=== PATIENT | female | born 1975 | race Caucasian/White ===

== ENCOUNTER → 2016-05-09 | Outpatient (CLI) | payer OTHER ==
[2016-05-09 13:45] LABS: ALBUMIN 3.2 g/dL (3.4-5.0); ALBUMIN/GLOBULIN RATIO 0.8 (1.0-1.7); CALCIUM 9.3 mg/dL (8.5-10.1); CREATININE 0.9 mg/dL (0.6-1.0); GFR 68.3; POTASSIUM 3.9 mmol/L (3.5-5.1); TOTAL BILIRUBIN 0.5 mg/dL (0.2-1.0); TOTAL PROTEIN 7.3 g/dL (6.4-8.2)
[2016-05-09 13:50] LABS: CHOLESTEROL/HDL RATIO 4.1
[2016-05-09 14:00] LABS: FREE T4 1.14 ng/dL (0.76-1.46)
[2016-05-09 14:02] LABS: CKMB MASS < 0.5 ng/mL (0.0-3.6); CREATINE KINASE 36 U/L (26-192)
[2016-05-09 20:10] LABS: RHEUMATOID FACTOR <10.0 IU/mL (0.0-13.9)
== END | disposition home or self-care (01) ==
LOC: EDBD 12:42 → LAB 12:42
PROVIDERS: ATTEND Family Medicine
DX: E78.5 Hyperlipidemia, unspecified (principal); M25.50 Pain in unspecified joint; M79.1 Myalgia
CPT/HCPCS: 36415; 80053; 80061; 82553; 84439; 84443; 85651; 86431

== ENCOUNTER → 2016-06-09 | Outpatient (CLI) | payer OTHER ==
--- NOTE | 2016-06-09 11:11 | RAD ---
DATE: 06/09/2016 EXAM: DIGITAL SCREEN BILAT W/CAD HISTORY: Screening. Note is made of the positive family history for breast malignancy COMPARISON: Outside examination 01/19/2012. This study was interpreted with the benefit of Computerized Aided Detection (CAD). FINDINGS: The breast parenchyma shows scattered fibroglandular densities. Breast parenchyma level B. There are new nodular opacities in the breasts and a suggested area of possible architectural distortion in the right breast. The dominant nodule is in the upper and outer aspect of the left breast. Possible nodules and architectural distortion in the right breast are best demonstrated on the cc view. Additional cone compression imaging of the left breast and targeted ultrasound is advised. Rolled cc views and an ML view of the right breast are suggested. If nodules persist targeted ultrasound of the right breast may be warranted. IMPRESSION: New nodule in the left breast. Possible new nodules and architectural distortion in the right breast. Additional imaging suggested as outlined above BI-RADS CATEGORY: 0 INCOMPLETE: NEED ADDITIONAL IMAGING EVAULATION AND/OR PRIOR MAMMOGRAMS FOR COMPARISON RECOMMENDED FOLLOW-UP: ADD ADDITIONAL IMAGING PQRS compliance statement: Patient information was entered into a reminder system with a target due date soon for the next mammogram. Mammography is a sensitive method for finding small breast cancers, but it does not detect them all and is not a substitute for careful clinical examination. A negative mammogram does not negate a clinically suspicious finding and should not result in delay in biopsying a clinically suspicious abnormality. "Our facility is accredited by the [employer] Mammography [employer]."
== END | disposition home or self-care (01) ==
LOC: MAMMO 07:47
PROVIDERS: ATTEND Family Medicine
DX: Z12.31 Encounter for screening mammogram for malignant neoplasm of breast (principal)
CPT/HCPCS: G0202; 77067

== ENCOUNTER → 2016-07-01 | Outpatient (CLI) | payer OTHER ==
--- NOTE | 2016-07-01 14:44 | RAD ---
DATE: 07/01/2016 EXAM: DIGITAL DIAGNOSTIC BILATERAL, BREAST BILATERAL HISTORY: Suspicious screening study COMPARISON: 06/09/2016 This study was interpreted with the benefit of Computerized Aided Detection (CAD). FINDINGS: Additional views of both breasts were obtained and correlated with the screening images. They confirm the presence of a 19 mm nodule in the left breast at the 2-3 o'clock location. Some of its margins are smooth while others are obscured by adjacent dense fibroglandular tissue. There are 2 smaller, smooth nodules in the right breast at approximately the 12:00 location. These both measure approximately 9 mm. The area of possible architectural distortion described laterally in the right breast on the CC screening view is not reproduced on today's rolled cc views, spot compression or the straight mediolateral view. There are heterogeneous fibroglandular densities in this region. Bilateral breast ultrasound, 07/01/2016: A targeted ultrasound exam of the left breast was performed at the 2-3 o'clock location. There is a cluster of 2 cysts at this level measuring 2 cm in greatest dimension. This corresponds in size and location to the mammographic abnormality. Two additional smaller simple cysts were also noted just superior to this first cyst cluster, at the 2:00 location. A targeted ultrasound exam of the right breast was performed at the 12:00 location. There is a 7 mm simple cyst located approximately 4 cm from the nipple. There is a similar 7 mm cyst located 8 cm from the nipple at the 12:00 location. These appear to correspond to the mammographic abnormalities at 12:00. We also examined the entire upper outer quadrant of the right breast. No additional cysts or solid breast nodule is seen. IMPRESSION: 1. Bilateral breast cysts at 12:00 on the right and 2-3 o'clock on the left as described above. 2. The small opacity seen laterally on the right cc view of the screening study could not be reproduced mammographically and there was no sonographic correlate in this region. This is probably a summation shadow. Follow-up right mammography in 6 months and bilateral mammography at 12 years is suggested for confirmation. BI-RADS CATEGORY: 3 PROBABLY BENIGN FINDING(S)-SHORT INTERVAL FOLLOW-UP SUGGESTED RECOMMENDED FOLLOW-UP: 6M 6 MONTH FOLLOW-UP PQRS compliance statement: Patient information was entered into a reminder system with a target due date for the next mammogram. Mammography is a sensitive method for finding small breast cancers, but it does not detect them all and is not a substitute for careful clinical examination. A negative mammogram does not negate a clinically suspicious finding and should not result in delay in biopsying a clinically suspicious abnormality. "Our facility is accredited by the [employer] Mammography [employer]."
== END | disposition home or self-care (01) ==
LOC: MAMMO 12:44
PROVIDERS: ATTEND Family Medicine
DX: R92.8 Other abnormal and inconclusive findings on diagnostic imaging of breast (principal); N60.02 Solitary cyst of left breast; N60.01 Solitary cyst of right breast
CPT/HCPCS: 76641; G0204; 77066

== ENCOUNTER → 2017-02-23 | Day surgery (SDC) | payer OTHER ==
[~2017-02-23] MED LIST: 0.9 % SODIUM CHLORIDE 10 ML DISP.SYRIN. IV; 0.9 % SODIUM CHLORIDE 50 ML VIAL. IJ; BUPIVAC MPF-EPI 0.75%-1:200000 30 ML VIAL.; CALCIUM CARBONATE 500 MG TAB.CHEW PO; DESFLURANE 61 TO 120 MINUTES IH; DEXAMETHASONE SOD PHOS 20 MG/5 ML VIAL.; ESTROGENS, CONJ VAGINAL CREAM 30GM TUBE.; FAMOTIDINE 20 MG/2 ML VIAL; HYDROcodone/APAP 5/325MG 1 TAB TABLET PO; HYDROmorphone 2 MG/ML VIAL IV; LIDOCAINE 1% PF 2 ML VIAL. ID; LIDOCAINE 1% PF 5 ML VIAL.; MAG HYDROX/ALUMINUM HYD/SIMETH 30 ML ORAL.SUSP PO; MORPHINE SULFATE 2 MG/ML DISP.SYRIN. IV; NALOXONE 0.4 MG/ML VIAL. IV; ONDANSETRON PF 4 MG/2 ML VIAL.; ONDANSETRON PF 4 MG/2 ML VIAL. IV; PROCHLORPERAZINE 10 MG/2 ML VIAL. IV; PROPOFOL 20 ML IV; ROCURONIUM 50 MG/5 ML VIAL.; SIMETHICONE 80 MG TAB.CHEW PO; SUCCINYLCHOLINE 200 MG/10 ML VIAL.; ceFAZolin 2GM PREMIX 2 GM/50 ML BAG IV; diphenhydrAMINE 50 MG/ML VIAL IV; diphenhydrAMINE HCL 25 MG CAPSULE PO; fentaNYL PF VIAL 100 MCG/2 ML VIAL; fentaNYL PF VIAL 100 MCG/2 ML VIAL IV
[2017-02-23] MEDS: IV RINGERS,LACTATED 1000ML 1,000 ML IV (06:30)
[2017-02-23] MEDS: BUPIVACAINE MPF 0.5% 30 ML VIAL. (09:38)
[2017-02-23] MEDS: oxyCODONE/APAP 5/325 1 TAB TABLET PO (10:06)
== END | disposition home or self-care (01) ==
LOC: SURG 06:09
DX: N39.3 Stress incontinence (female) (male) (principal); N81.10 Cystocele, unspecified; E78.00 Pure hypercholesterolemia, unspecified; E66.9 Obesity, unspecified; K21.9 Gastro-esophageal reflux disease without esophagitis; F17.200 Nicotine dependence, unspecified, uncomplicated; Z87.39 Personal history of other diseases of the musculoskeletal system and connective tissue; Z90.49 Acquired absence of other specified parts of digestive tract; Z90.710 Acquired absence of both cervix and uterus
CPT/HCPCS: 57288; C1771; J0330; J0690; J1100; J2405; J2704; J3010; J3490; S0028

== ENCOUNTER → 2017-06-29 | Outpatient (CLI) | payer OTHER ==
[2017-06-29 07:42] LABS: ADD MAN DIFF? NO
[2017-06-29 08:07] LABS: BASO # 0.1 x10^3/uL (0.0-0.2); BASO % 1 % (0-3); EOS # 0.3 x10^3/uL (0.0-0.7); EOS % 3 % (0-3); HEMOGLOBIN 12.8 g/dL (12.0-15.5); LYMPH # 4.3 x10^3/uL (1.0-4.8); LYMPH % 34 % (24-48); MEAN CORPUSCULAR HEMOGLOBIN 31 pg (25-35); MEAN CORPUSCULAR HGB CONC 35 g/dL (31-37); MEAN CORPUSCULAR VOLUME 89 fL (79-100); MONO # 0.7 x10^3/uL (0.0-1.1); MONO % 6 % (0-9); NEUT # 7.1 x10^3uL (1.8-7.7); NEUT % 57 % (31-73); PLATELET COUNT 327 x10^3/uL (140-400); RED BLOOD COUNT 4.16 x10^6/uL (3.50-5.40); RED CELL DISTRIBUTION WIDTH 13.3 % (11.5-14.5); WHITE BLOOD COUNT 12.4 x10^3/uL (4.0-11.0)
[2017-06-29 08:17] LABS: ALBUMIN 3.5 g/dL (3.4-5.0); ALBUMIN/GLOBULIN RATIO 0.9 (1.0-1.7); ALK PHOS 87 U/L (46-116); ALT (SGPT) 18 U/L (14-59); ANION GAP 8 (6-14); AST (SGOT) 12 U/L (15-37); BLOOD UREA NITROGEN 15 mg/dL (7-20); BUN/CREATININE RATIO 15 (6-20); CALCIUM 8.9 mg/dL (8.5-10.1); CARBON DIOXIDE 28 mmol/L (21-32); CHLORIDE 103 mmol/L (98-107); CHOLESTEROL 165 mg/dL (0-200); GFR 60.2; GLUCOSE 92 mg/dL (70-99); HDLC 45 mg/dL (40-60); LDLC 78 mg/dL (0-100); NON-HDL CHOLESTEROL 120 mg/dL (0-129); POTASSIUM 4.2 mmol/L (3.5-5.1); SODIUM 139 mmol/L (136-145); TOTAL BILIRUBIN 0.5 mg/dL (0.2-1.0); TOTAL PROTEIN 7.3 g/dL (6.4-8.2); TRIGLYCERIDES 211 mg/dL (0-150); VLDLC 42 mg/dL (0-40)
[2017-06-29 08:25] LABS: CHOLESTEROL/HDL RATIO 3.7
[2017-06-29 08:27] LABS: FREE T4 0.96 ng/dL (0.76-1.46)
[2017-06-29 08:27] LABS: THYROID STIM HORMONE (TSH) 2.212 uIU/mL (0.358-3.74)
== END | disposition home or self-care (01) ==
LOC: LAB 07:32
DX: E78.5 Hyperlipidemia, unspecified (principal); R00.2 Palpitations
CPT/HCPCS: 36415; 80053; 80061; 84439; 84443; 85025

== ENCOUNTER 2017-07-11 19:10 | Emergency (ER) | payer OTHER ==
[2017-07-11 20:16] LABS: BILIRUBIN,URINE NEGATIVE (NEG); CLARITY,URINE CLEAR; COLOR,URINE YELLOW; GLUCOSE,URINE NEGATIVE (NEG); NITRITE,URINE NEGATIVE (NEG); PROTEIN,URINE NEGATIVE (NEG-TRACE); UROBILINOGEN,URINE 0.2 mg/dL (0.2 mg/dL)
[2017-07-11 20:20] LABS: BACTERIA,URINE 0 /HPF (0-FEW); RBC,URINE 0 /HPF (0-2); SQUAMOUS EPITHELIAL CELL,UR FEW /LPF; WBC,URINE 0 /HPF (0-4)
[2017-07-11 20:23] LABS: ADD MAN DIFF? NO
[2017-07-11 20:25] LABS: BASO # 0.1 x10^3/uL (0.0-0.2); BASO % 1 % (0-3); EOS # 0.1 x10^3/uL (0.0-0.7); EOS % 2 % (0-3); HEMATOCRIT 38.5 % (36.0-47.0); HEMOGLOBIN 13.4 g/dL (12.0-15.5); LYMPH # 2.3 x10^3/uL (1.0-4.8); LYMPH % 34 % (24-48); MEAN CORPUSCULAR HEMOGLOBIN 31 pg (25-35); MEAN CORPUSCULAR HGB CONC 35 g/dL (31-37); MEAN CORPUSCULAR VOLUME 89 fL (79-100); MONO # 0.4 x10^3/uL (0.0-1.1); MONO % 6 % (0-9); NEUT # 3.8 x10^3uL (1.8-7.7); NEUT % 56 % (31-73); PLATELET COUNT 348 x10^3/uL (140-400); RED BLOOD COUNT 4.35 x10^6/uL (3.50-5.40); WHITE BLOOD COUNT 6.7 x10^3/uL (4.0-11.0)
[2017-07-11 20:34] LABS: ANION GAP 14 (6-14); BLOOD UREA NITROGEN 13 mg/dL (7-20); BUN/CREATININE RATIO 14 (6-20); CALCIUM 8.6 mg/dL (8.5-10.1); CARBON DIOXIDE 22 mmol/L (21-32); CHLORIDE 107 mmol/L (98-107); CREATININE 0.9 mg/dL (0.6-1.0); GLUCOSE 95 mg/dL (70-99); POTASSIUM 4.4 mmol/L (3.5-5.1); SODIUM 143 mmol/L (136-145)
[2017-07-11 20:40] LABS: ALBUMIN 3.5 g/dL (3.4-5.0); ALBUMIN/GLOBULIN RATIO 1.1 (1.0-1.7); ALK PHOS 90 U/L (46-116); ALT (SGPT) 21 U/L (14-59); AST (SGOT) 14 U/L (15-37); TOTAL BILIRUBIN 0.5 mg/dL (0.2-1.0); TOTAL PROTEIN 6.8 g/dL (6.4-8.2)
[2017-07-11 20:44] LABS: TROPONINI < 0.017 ng/mL (0.000-0.055)
[2017-07-11 21:27] LABS: SEDIMENTATION RATE 6 (0-25)
[2017-07-11] MEDS: IV NORMAL SALINE 1000ML BAG 1,000 ML IV (21:41)
[2017-07-11] MEDS: KETOROLAC 30 MG/ML INJ. IV (21:41)
[2017-07-11] MEDS: METOCLOPRAMIDE HCL 10 MG/2 ML VIAL. IV (21:42)
[2017-07-11] MEDS: diphenhydrAMINE 50 MG/ML VIAL IVP (21:42)
== END 2017-07-11 23:50 | disposition home or self-care (01) ==
LOC: ER 23:50
DX: G43.909 Migraine, unspecified, not intractable, without status migrainosus (principal); E78.00 Pure hypercholesterolemia, unspecified; Z90.49 Acquired absence of other specified parts of digestive tract; Z90.710 Acquired absence of both cervix and uterus
CPT/HCPCS: 36415; 70450; 80053; 81001; 84484; 85025; 85651; 93005; 96374; 96375; 99285-25; J1200; J1885; J2765; J7030

== ENCOUNTER → 2017-08-03 | Outpatient (CLI) | payer OTHER | END | disposition home or self-care (01) | LOC: ECHO 08:35 | DX: I36.1 Nonrheumatic tricuspid (valve) insufficiency (principal); J98.4 Other disorders of lung | CPT/HCPCS: 93306 ==

== ENCOUNTER → 2018-06-27 | Outpatient (CLI) | payer OTHER ==
[2017-07-11 22:50] VITALS: BP 117/80
[~2018-06-27] MED LIST changes: -0.9 % SODIUM CHLORIDE 10 ML DISP.SYRIN. IV; -0.9 % SODIUM CHLORIDE 50 ML VIAL. IJ; +ALBU2.5V8 IH; -BUPIVAC MPF-EPI 0.75%-1:200000 30 ML VIAL.; -CALCIUM CARBONATE 500 MG TAB.CHEW PO; +CYCL10TA2 PO; -DESFLURANE 61 TO 120 MINUTES IH; -DEXAMETHASONE SOD PHOS 20 MG/5 ML VIAL.; -ESTROGENS, CONJ VAGINAL CREAM 30GM TUBE.; -FAMOTIDINE 20 MG/2 ML VIAL; -HYDROcodone/APAP 5/325MG 1 TAB TABLET PO; -HYDROmorphone 2 MG/ML VIAL IV; +IPRA3AMP29 NEB; -LIDOCAINE 1% PF 2 ML VIAL. ID; -LIDOCAINE 1% PF 5 ML VIAL.; -MAG HYDROX/ALUMINUM HYD/SIMETH 30 ML ORAL.SUSP PO; +MELO15TA6 PO; -MORPHINE SULFATE 2 MG/ML DISP.SYRIN. IV; -NALOXONE 0.4 MG/ML VIAL. IV; -ONDANSETRON PF 4 MG/2 ML VIAL.; -ONDANSETRON PF 4 MG/2 ML VIAL. IV; +PRED20TA PO; -PROCHLORPERAZINE 10 MG/2 ML VIAL. IV; -PROPOFOL 20 ML IV; -ROCURONIUM 50 MG/5 ML VIAL.; -SIMETHICONE 80 MG TAB.CHEW PO; +SIMV20TA3 PO; -SUCCINYLCHOLINE 200 MG/10 ML VIAL.; +TRAM50TA PO; +TRAZ-118 PO; -ceFAZolin 2GM PREMIX 2 GM/50 ML BAG IV; -diphenhydrAMINE 50 MG/ML VIAL IV; -diphenhydrAMINE HCL 25 MG CAPSULE PO; -fentaNYL PF VIAL 100 MCG/2 ML VIAL; -fentaNYL PF VIAL 100 MCG/2 ML VIAL IV
--- NOTE | 2018-06-27 11:45 | RAD ---
DATE: 06/27/2018 EXAM: MAMMO MAGNUS BERNICE MOYA, BREAST LEFT HISTORY: Left breast pain and lump COMPARISON: 06/09/2016, 07/01/2016 This study was interpreted with the benefit of Computerized Aided Detection (CAD). Breast Density: SCATTERED The breast parenchyma shows scattered fibroglandular densities. Breast parenchyma level B. FINDINGS: 2-D and 3-D tomosynthesis imaging was performed in CC and MLO projections. A BB was placed on the skin surface overlying the area of palpable concern laterally in the left breast There are multiple smooth nodules in both breasts. Some of these are better defined on the current 3-D tomosynthesis images due to technical factors. The largest of these nodules lies in the left upper outer quadrant and corresponds to the area of palpable concern. This nodule has increased in size since the previous study at which time it measured 2 cm. On the previous ultrasound exam of 07/01/2016 this was thought to correspond to a cyst cluster. Several other bilateral breast cysts were noted on the prior ultrasound exam. Two small right breast cysts seen on the previous study appear unchanged mammographically. There is an unchanged nodule projected over the axillary tail region of the left breast which probably represents a benign intramammary lymph node. No spiculated mass or architectural distortion is seen. No suspicious microcalcifications are evident. Left breast ultrasound, 06/27/2018: A targeted ultrasound exam of the area of palpable concern in the left upper outer quadrant was performed. There is a 2.9 cm cyst at the 1:30 location approximately 9 cm from the nipple which appears to correspond to the area of palpable concern. There is a nearby cluster of smaller cysts, the largest of which measures 1.1 cm. One of these demonstrates a somewhat thickened wall and low level internal echoes compatible with a complicated cyst. No solid breast mass is seen. IMPRESSION: 1. Stable right breast nodules compatible with the patient's known cysts. 2. The enlarging palpable nodule in the left upper outer quadrant corresponds to a simple cyst. 3. There is an additional nearby cluster of simple and probable complicated cysts in the left breast. Sonographic follow-up on the left in 6 months and bilateral mammography in one year is suggested. BI-RADS CATEGORY: 3 PROBABLY BENIGN FINDING(S)-SHORT INTERVAL FOLLOW-UP SUGGESTED RECOMMENDED FOLLOW-UP: 6M 6 MONTH FOLLOW-UP PQRS compliance statement: Patient information was entered into a reminder system with a target due date for the next mammogram. Mammography is a sensitive method for finding small breast cancers, but it does not detect them all and is not a substitute for careful clinical examination. A negative mammogram does not negate a clinically suspicious finding and should not result in delay in biopsying a clinically suspicious abnormality. "Our facility is accredited by the [employer] Mammography Program."
== END | disposition home or self-care (01) ==
LOC: MAMMO 10:00
DX: N63.21 Unspecified lump in the left breast, upper outer quadrant (principal); N63.10 Unspecified lump in the right breast, unspecified quadrant
CPT/HCPCS: 76641; 77066; G0279; 77062

== ENCOUNTER 2019-02-06 06:48 | Emergency (ER) | payer OTHER ==
[~2019-02-06] VITALS: Ht 162.6 cm; Wt 102.1 kg
[~2019-02-06 06:48] MED LIST changes: -ALBU2.5V8 IH; +PROVENTIL HFA6.7 GM IH; +SIMV20TA18 PO; -SIMV20TA3 PO
[2019-02-06 07:10] VITALS: BP 154/86
[2019-02-06] MEDS: KETOROLAC 30 MG/ML VIAL. IM ONE (08:05)
--- NOTE | 2019-02-06 08:20 | RAD ---
FOOT RIGHT 3V History: Pain. No specific location of pain. No history of trauma.. No evidence of acute fracture. No aggressive bone destruction. Calcaneal enthesophytes. No significant soft tissue swelling. Joints and alignment appear grossly intact. IMPRESSION: No acute radiographic findings. Electronically signed by: Matti Acevedo MD (02/06/2019 8:17 AM) [facility]
--- NOTE | 2019-02-06 08:27 | PHYS DOC ---
Past Medical History Past Medical History: Fibromyalgia, High Cholesterol Past Surgical History: Cholecystectomy, Hysterectomy, Other Additional Past Surgical Histo: Bladder sling, LEFT FOOT/ANKLE Alcohol Use: None Drug Use: None Adult General Chief Complaint Chief Complaint: FOOT INJURY PAIN HPI HPI Patient is a 43 year old with past medical history of fibromyalgia who presents with right foot pain that began this morning after getting out of the shower and taking a couple steps. She felt a "pop and crunch" in her right mid foot that she describes as sharp, non-radiating, and rated as a 5 out of 10 in severity. She denies any trauma or injury to the area. She is unable to walk at this time and has significantly decreased strength and range of motion in the foot. She has not taken any medications to this point for the foot. She has no other complaints at this time. Review of Systems Review of Systems Constitutional: Denies fever or chills Eyes: Denies redness or eye pain HENT: Denies nasal congestion or sore throat Respiratory: Denies cough or shortness of breath Cardiovascular: Denies chest pain or palpitations Musculoskeletal: Right foot pain Integument: Denies rash or skin lesions Neurologic: Denies headache, focal weakness or sensory changes Complete systems were reviewed and found to be within normal limits, except as documented in this note. Current Medications Current Medications Current Medications Medications (Trade) Dose Ordered Sig/Rakan Start Time Stop Time Status Last Admin Dose Admin Ketorolac Tromethamine (Toradol 30mg Vial) 30 mg 1X ONCE 02/06/19 07:45 02/06/19 07:46 DC 02/06/19 08:05 30 MG Allergies Allergies Allergies Coded Allergies Type Severity Reaction Last Updated Verified No Known Drug Allergies 02/23/17 No Physical Exam Physical Exam Constitutional: Well developed, well nourished, no acute distress, non-toxic appearance Eyes: conjunctiva normal, no discharge Cardiovascular: Heart rate normal, regular rhythm Lungs & Thorax: Bilateral breath sounds clear to auscultation, no wheezing Skin: Warm, dry, no erythema, no rash Extremities: TTP inferior to medial malleolus with mild swelling. Decreased ROM and strength in right foot. Normal sensation. Neurologic: Alert and oriented X 3, normal motor function, normal sensory function, no focal deficits noted Psychologic: Affect normal, judgement normal, mood normal Current Patient Data Vital Signs Vital Signs Date Time Temp Pulse Resp B/P (MAP) Pulse Ox O2 Delivery O2 Flow Rate FiO2 02/06/19 07:10 98.6 89 20 154/86 (108) 97 Room Air 98.6 EKG EKG [] Radiology/Procedures Radiology/Procedures PROCEDURE: FOOT RIGHT 3V FOOT RIGHT 3V History: Pain. No specific location of pain. No history of trauma.. No evidence of acute fracture. No aggressive bone destruction. Calcaneal enthesophytes. No significant soft tissue swelling. Joints and alignment appear grossly intact. IMPRESSION: No acute radiographic findings. Electronically signed by: Matti Acevedo MD (02/06/2019 8:17 AM) [facility] Course & Med Decision Making Course & Med Decision Making Patient is a 43-year-old female who presents with right foot pain after hearing a pop while stepping out of a shower. She denies twisting her ankle or falling. On exam she has tenderness to palpation just below the medial malleolus with mild swelling. X-ray of the foot was obtained which showed no acute fractures. She was given Toradol eyes and crutches and preop shoe to help with mobility and pain at this time. She is counseled to follow-up with orthopedic for further diagnosis. Patient stable for discharge with outpatient follow-up with PCP. Discussed findings and plan with patient and family, who acknowledge understanding and agreement. Dragon Disclaimer Dragon Disclaimer This electronic medical record was generated, in whole or in part, using a voice recognition dictation system. Splinting Splinting : Location: right foot Pre-Made Type: post-op shoe Pre-Proc Neuro Vasc Exam: normal Post-Proc Neuro Vasc Exam: normal, unchanged from pre-exam Departure Departure Impression: Primary Impression: Foot pain, right Disposition: 01 HOME, SELF-CARE Condition: STABLE Referrals: KIMBERLY CEDENO MD (PCP) ANDREZ NEWELL MD Patient Instructions: Crutch Use, [id number], Foot Sprain Additional Instructions: Please take over the counter Ibuprofen and Tylenol for pain or discomfort. MATTI JOHNSON DO Feb 06, 2019 08:27
== END 2019-02-06 08:50 | disposition home or self-care (01) ==
LOC: ER 06:48
DX: M79.671 Pain in right foot (principal); M79.7 Fibromyalgia; E78.00 Pure hypercholesterolemia, unspecified; Z90.49 Acquired absence of other specified parts of digestive tract; Z90.89 Acquired absence of other organs; Z98.890 Other specified postprocedural states
CPT/HCPCS: 73630; 96372; 99284; J1885

== ENCOUNTER → 2019-02-20 | Outpatient (CLI) | payer OTHER ==
[2019-02-06 07:10] VITALS: BP 154/86
--- NOTE | 2019-02-21 10:52 | RAD ---
MR of the right ankle HISTORY: Internal derangement. TECHNIQUE: Routine multiplanar sequences are obtained. FINDINGS: Peroneal tendons are intact. Anterior talofibular ligament, calcaneofibular ligament and posterior talofibular ligament are intact. Inferior tibiofibular syndesmotic ligaments are intact. Posterior tibial and flexor tendons are intact. No acute deltoid ligament injury. Anterior tibial and extensor tendons are intact. Achilles tendon intact. Mild thickening of the plantar aponeurosis at the calcaneal attachment compatible plantar fasciitis. Small subjacent enthesophyte. The subtalar joints are patent. Tarsal sinus is intact. Talar dome is intact. No significant joint effusion. Suboptimal fat suppression on the T2-weighted images may limit evaluation of bones. No evidence of aggressive bone destruction or acute fracture is suggested. IMPRESSION: 1. Mild plantar fasciitis. 2. No other definite abnormalities are seen. Electronically signed by: Matti Acevedo MD (02/21/2019 10:49 AM) [id number]
== END | disposition home or self-care (01) ==
LOC: MRI 14:51
PROVIDERS: ATTEND Physician Assistant
DX: M72.2 Plantar fascial fibromatosis (principal); M24.871 Other specific joint derangements of right ankle, not elsewhere classified
CPT/HCPCS: 73721

== ENCOUNTER → 2019-08-05 | Outpatient (CLI) | payer OTHER ==
[2019-08-05 14:05] LABS: BASO # 0.1 x10^3/uL (0.0-0.2); BASO % 1 % (0-3); EOS # 0.3 x10^3/uL (0.0-0.7); EOS % 3 % (0-3); HEMOGLOBIN 13.8 g/dL (12.0-15.5); LYMPH # 3.4 x10^3/uL (1.0-4.8); LYMPH % 32 % (24-48); MEAN CORPUSCULAR HEMOGLOBIN 31 pg (25-35); MEAN CORPUSCULAR HGB CONC 35 g/dL (31-37); MEAN CORPUSCULAR VOLUME 90 fL (79-100); MONO # 0.6 x10^3/uL (0.0-1.1); MONO % 5 % (0-9); NEUT # 6.3 x10^3/uL (1.8-7.7); NEUT % 59 % (31-73); PLATELET COUNT 370 x10^3/uL (140-400); RED BLOOD COUNT 4.45 x10^6/uL (3.50-5.40); RED CELL DISTRIBUTION WIDTH 13.6 % (11.5-14.5); WHITE BLOOD COUNT 10.6 x10^3/uL (4.0-11.0)
[2019-08-05 15:15] LABS: ALBUMIN 3.5 g/dL (3.4-5.0); ALBUMIN/GLOBULIN RATIO 0.9 (1.0-1.7); CALCIUM 8.4 mg/dL (8.5-10.1); GFR 59.7; POTASSIUM 4.1 mmol/L (3.5-5.1); TOTAL BILIRUBIN 0.9 mg/dL (0.2-1.0); TOTAL PROTEIN 7.3 g/dL (6.4-8.2)
[2019-08-05 15:53] LABS: CHOLESTEROL/HDL RATIO 5.1
== END | disposition home or self-care (01) ==
LOC: LAB 13:41
PROVIDERS: ATTEND Family Medicine
DX: E78.5 Hyperlipidemia, unspecified (principal); K21.9 Gastro-esophageal reflux disease without esophagitis
CPT/HCPCS: 36415; 80053; 80061; 85025

== ENCOUNTER → 2019-08-05 | Outpatient (CLI) | payer OTHER ==
--- NOTE | 2019-08-05 13:37 | KCIC ---
EXAM: DUAL ENERGY X-RAY ABSORPTIOMETRY (DEXA). HISTORY: Postmenopausal screening. FINDINGS: The lowest measured T-score is -0.7 in the left proximal femur, based on a bone mineral density of 0.856 g/cm^2. Refer to the worksheets for full detail. No comparison examinations are available. IMPRESSION: Low bone mass. Bone mineral density yields a T-score between -1.0 and -2.5. Fracture risk is increased. FRAX was not calculated. METHODOLOGY: Dual energy x-ray absorptiometry was performed to measure bone mineral density. The following analysis is based on the 2019 Official Positions of the International Society for Clinical Densitometry: Measurements of the hips and the average of L1-L4 are preferred. When the spine and/or hip cannot be feasibly measured or interpreted, or in the setting of hyperparathyroidism, distal radial bone mineral density may be measured. The lumbar spine T-score is based on the average bone mineral density of L1-L4. In the setting of artifact or anatomic abnormality, some lumbar levels may be excluded, and the remaining levels used for calculation. A single lumbar level is not used for diagnosis, and if only a single level is available for assessment, another anatomic site will be used to assign a diagnosis. The hip T-score is based on the bone mineral density measurement of the femoral neck or total proximal femur of either side, whichever is lowest. Bilateral mean values are not used for diagnosis. The forearm T-score is derived from 33% of the distal radius of the nondominant forearm. For postmenopausal and perimenopausal women, and men age 50 or older, of all ethnic groups, T-scores are calculated through comparison of the current measurement with the NHANES III database standard for females aged 20-29 years. The lowest T-score of the evaluated anatomic sites is used to assign a diagnosis based on the World Health Organization densitometric classification. In premenopausal females and males younger than age 50, a Z-score is calculated based on population specific reference data for patient sex and self-reported ethnicity. Electronically signed by: Mark Diaz MD (08/05/2019 1:34 PM) [facility]
== END ==
LOC: KCIC DEXA 13:00
PROVIDERS: ATTEND Family Medicine
DX: N95.1 Menopausal and female climacteric states (principal); N95.8 Other specified menopausal and perimenopausal disorders
CPT/HCPCS: 77080

== ENCOUNTER → 2019-08-15 | Outpatient (CLI) | payer OTHER | END | disposition home or self-care (01) | LOC: LAB 13:28 | PROVIDERS: ATTEND Internal Medicine Pulmonary Disease | DX: Z20.828 Contact with and (suspected) exposure to other viral communicable diseases (principal); J02.9 Acute pharyngitis, unspecified; R53.81 Other malaise; R51 Headache | CPT/HCPCS: U0003-CS ==

== ENCOUNTER → 2019-08-22 | Outpatient (CLI) | payer OTHER ==
--- NOTE | 2019-08-22 14:53 | RAD ---
CLINICAL INDICATION: BRITANY CHRISTENSEN, who is 44 years of age, presents for short-term imaging followup of a probably benign finding in the left breast. COMPARISON: Prior mammographic imaging dating back to 06/27/2018 TECHNIQUE: Full field craniocaudal, mediolateral and mediolateral oblique views of both breasts were obtained using digital technique. Computer-aided detection tools were utilized. BREAST COMPOSITION: There are scattered fibroglandular densities. MAMMOGRAM FINDINGS: There are no suspicious masses, microcalcifications, or architectural distortion to suggest malignancy in the either breast. The visualized axilla appears unremarkable. Given the prior sonographic abnormality, ultrasound was then performed. ULTRASOUND FINDINGS: Targeted ultrasound of the previously described probably benign finding was again performed. 1:30 position, 7 cm from the nipple: An anechoic avascular mass of circumscribed margins and round/oval shape is present. It demonstrates posterior acoustic enhancement and a parallel orientation. It measures 7 mm At the 1:30 position, approximately 5 cm from the nipple a hypoechoic mass with enhanced through transmission measures 8 mm. At the 1:30 position, approximately 7-8 cm from the nipple a 5 mm anechoic cystic structure is seen with slightly irregular arellano likely from partial collapse. IMPRESSION: 1. Left breast probably benign mass for which follow up is recommended. RECOMMENDATION: In the absence of new clinical symptoms or change in physical exam, short term follow up diagnostic examination is recommended in 6 months to assess for interval stability. BIRADS 3: PROBABLY BENIGN Electronically signed by: Raz Mancilla MD (08/22/2019 2:50 PM) [id number]
== END | disposition home or self-care (01) ==
LOC: MAMMO 13:44
PROVIDERS: ATTEND Family Medicine
DX: R92.2 Inconclusive mammogram (principal)
CPT/HCPCS: 76641; 77066

== ENCOUNTER → 2019-12-22 | Outpatient (CLI) | payer OTHER ==
[2019-12-09 18:57] VITALS: BP 138/77
== END ==
LOC: LAB 19:20
PROVIDERS: ATTEND Internal Medicine Pulmonary Disease
DX: R05 Cough (principal); R53.81 Other malaise; R68.83 Chills (without fever); R19.7 Diarrhea, unspecified; R09.81 Nasal congestion; Z20.828 Contact with and (suspected) exposure to other viral communicable diseases
CPT/HCPCS: C9803; U0003

== ENCOUNTER 2020-03-31 12:08 | Emergency (ER) | payer OTHER ==
[~2020-03-31] VITALS: Ht 162.6 cm; Wt 100.0 kg
[2020-03-31] MEDS ORDERED: IV NORMAL SALINE 1000ML BAG 1,000 ML IV SCH (14:00)
[2020-03-31 14:09] LABS: BILIRUBIN,URINE NEGATIVE (NEG); CLARITY,URINE CLEAR; COLOR,URINE YELLOW; NITRITE,URINE NEGATIVE (NEG); PH,URINE 7.5 (<5.0-8.0); PROTEIN,URINE NEGATIVE (NEG-TRACE)
[2020-03-31] MEDS ORDERED: ONDANSETRON PF 4 MG/2 ML VIAL. IVP ONE (14:15)
[2020-03-31] MEDS ORDERED: KETOROLAC 30 MG/ML VIAL. IVP ONE (14:15)
[2020-03-31] MEDS ORDERED: MORPHINE SULFATE 4 MG/ML VIAL. IV ONE (14:15)
[2020-03-31 14:22] LABS: BASO # 0.1 x10^3/uL (0.0-0.2); BASO % 1 % (0-3); EOS # 0.1 x10^3/uL (0.0-0.7); EOS % 1 % (0-3); HEMATOCRIT 38.8 % (36.0-47.0); HEMOGLOBIN 13.3 g/dL (12.0-15.5); LYMPH # 1.6 x10^3/uL (1.0-4.8); LYMPH % 15 % (24-48); MEAN CORPUSCULAR HEMOGLOBIN 31 pg (25-35); MEAN CORPUSCULAR HGB CONC 34 g/dL (31-37); MEAN CORPUSCULAR VOLUME 90 fL (79-100); MONO # 0.7 x10^3/uL (0.0-1.1); MONO % 6 % (0-9); NEUT # 8.5 x10^3/uL (1.8-7.7); NEUT % 78 % (31-73); PLATELET COUNT 316 x10^3/uL (140-400); RED BLOOD COUNT 4.33 x10^6/uL (3.50-5.40); RED CELL DISTRIBUTION WIDTH 13.4 % (11.5-14.5); WHITE BLOOD COUNT 10.9 x10^3/uL (4.0-11.0)
[2020-03-31 14:27] LABS: BACTERIA,URINE MANY /HPF (0-FEW); RBC,URINE OCC /HPF (0-2); WBC,URINE >40 /HPF (0-4)
--- NOTE | 2020-03-31 14:28 | RAD ---
XR ABDOMEN 1V History: Reason: ABD PAIN.RT FLANK PAIN THAT RADIATES DOWN INTO GROIN. / Spl. Instructions: / Histor y: Comparison: None. Technique: Supine radiographs of the abdomen and pelvis. Findings: Surgical clips in the right upper quadrant. Nonobstructive bowel gas pattern. No abnormal calcificati ons or abnormal mass impression. Evidence for free air. Osseous structures and soft tissues otherwise unremarkable Impression: 1. No acute abdominal findings. No evidence of urolithiasis. Electronically signed by: Kiko Nixon MD (03/31/2020 2:25 PM) [facility]
[2020-03-31 14:51] LABS: ALBUMIN 3.4 g/dL (3.4-5.0); ALBUMIN/GLOBULIN RATIO 0.8 (1.0-1.7); CALCIUM 8.5 mg/dL (8.5-10.1); GFR 59.7; POTASSIUM 3.3 mmol/L (3.5-5.1); TOTAL BILIRUBIN 1.2 mg/dL (0.2-1.0); TOTAL PROTEIN 7.8 g/dL (6.4-8.2)
--- NOTE | 2020-03-31 15:47 | RAD ---
INDICATION: Reason: abdominal pain, RT FLANK PAIN X 5 DAYS / Spl. Instructions: / History: . COMPARISON: None. TECHNIQUE: Axial CT images obtained through the abdomen and pelvis without contrast. One or more of the following individualized dose reduction techniques were utilized for this examinat ion: 1. Automated exposure control; 2. Adjustment of the mA and/or kV according to patient size; 3 . Use of iterative reconstruction technique. FINDINGS: Abdominal aorta is not aneurysmal. No intrahepatic bile duct dilation. Postcholecystectomy changes. No peripancreatic fluid collection. Spleen unremarkable. No left-sided hydronephrosis. Urinary bladder is partially distended. Right-sided hydronephrosis with perinephric edema and periureteral edema colonic diverticulosis. Small fat-containing umbilical hernia. No periappendiceal inflammatory changes. No dilated loops of bowel to suggest obstruction. Lucent lesion L4 vertebral body measuring approximately 13 mm. Most commonly from hemangioma. IMPRESSION: * Right-sided hydronephrosis and hydroureter with edema adjacent to the right kidney and ureter. Dif ferential considerations include urinary tract infection or a recently passed right ureter stone Electronically signed by: Blake Rose MD (03/31/2020 3:44 PM) [id number]
--- NOTE | 2020-03-31 15:59 | PHYS DOC ---
Past Medical History Past Medical History: Fibromyalgia, Hypertension Past Surgical History: Cholecystectomy, Hysterectomy Additional Past Surgical Histo: Bladder sling, LEFT FOOT/ANKLE Smoking Status: Never Smoker Alcohol Use: None Drug Use: None Adult General Chief Complaint Chief Complaint: FLANK PAIN HPI HPI Patient is a 44 year old female denies any significant past medical history presenting emergency department for new onset of back and abdominal pain. Patient states that over the last 5 days she has been having worsening sensation of right-sided back and flank pain which is steadily increased in severity. Patient states that this is worsened over the last 24 hours. Patient states that she feels nauseous has not had any episodes of vomiting or diarrhea. Denies any fevers. Does state the pain does get worse. Review of Systems Review of Systems Constitutional: Denies fever or chills [] Eyes: Denies change in visual acuity, redness, or eye pain [] HENT: Denies nasal congestion or sore throat [] Respiratory: Denies cough or shortness of breath [] Cardiovascular: No additional information not addressed in HPI [] GI: Denies abdominal pain, nausea, vomiting, bloody stools or diarrhea [] : Denies dysuria or hematuria [] Musculoskeletal: Denies back pain or joint pain [] Integument: Denies rash or skin lesions [] Neurologic: Denies headache, focal weakness or sensory changes [] Endocrine: Denies polyuria or polydipsia [] All other systems were reviewed and found to be within normal limits, except as documented in this note. Current Medications Current Medications Current Medications Medications (Trade) Dose Ordered Sig/Rakan Start Time Stop Time Status Last Admin Dose Admin Ketorolac Tromethamine (Toradol 30mg Vial) 30 mg 1X ONCE 03/31/20 14:15 03/31/20 14:16 DC 03/31/20 14:20 30 MG Morphine Sulfate (Morphine Sulfate) 4 mg 1X ONCE 03/31/20 14:15 03/31/20 14:16 DC 03/31/20 14:20 4 MG Ondansetron HCl (Zofran) 4 mg 1X ONCE 03/31/20 14:15 03/31/20 14:16 DC 03/31/20 14:20 4 MG Sodium Chloride 1,000 ml @ 1,000 mls/hr Q1H 03/31/20 14:00 03/31/20 14:59 DC 03/31/20 14:15 1,000 MLS/HR Allergies Allergies Allergies Coded Allergies Type Severity Reaction Last Updated Verified No Known Drug Allergies 02/23/17 No Physical Exam Physical Exam Constitutional: Well developed, well nourished, no acute distress, non-toxic appearance. [] HENT: Normocephalic, atraumatic, bilateral external ears normal, oropharynx moist, no oral exudates, nose normal. [] Eyes: PERRLA, EOMI, conjunctiva normal, no discharge. [] Neck: Normal range of motion, no tenderness, supple, no stridor. [] Cardiovascular:Heart rate regular rhythm, no murmur [] Lungs & Thorax: Bilateral breath sounds clear to auscultation [] Abdomen: Bowel sounds normal, soft, moderate right-sided flank tenderness., no masses, no pulsatile masses. [] Skin: Warm, dry, no erythema, no rash. [] Back: No tenderness, no CVA tenderness. [] Extremities: No tenderness, no cyanosis, no clubbing, ROM intact, no edema. [] Neurologic: Alert and oriented X 3, normal motor function, normal sensory function, no focal deficits noted. [] Psychologic: Affect normal, judgement normal, mood normal. [] Current Patient Data Vital Signs Vital Signs Date Time Temp Pulse Resp B/P (MAP) Pulse Ox O2 Delivery O2 Flow Rate FiO2 03/31/20 14:20 18 98 03/31/20 13:40 98.6 92 191/96 (127) Room Air 98.6 Lab Values Laboratory Tests Test 03/31/20 13:45 03/31/20 14:15 Urine Collection Type Unknown Urine Color Yellow Urine Clarity Clear Urine pH 7.5 (<5.0-8.0) Urine Specific [place] 1.015 (1.000-1.030) Urine Protein Negative mg/dL (NEG-TRACE) Urine Glucose (UA) Negative mg/dL (NEG) Urine Ketones (Stick) Negative mg/dL (NEG) Urine Blood Trace (NEG) Urine Nitrite Negative (NEG) Urine Bilirubin Negative (NEG) Urine Urobilinogen Dipstick 1.0 mg/dL (0.2 mg/dL) Urine Leukocyte Esterase Large (NEG) Urine RBC Occ /HPF (0-2) Urine WBC >40 /HPF (0-4) Urine Squamous Epithelial Cells Few /LPF Urine Bacteria Many /HPF (0-FEW) Urine Mucus Mod /LPF White Blood Count 10.9 x10^3/uL (4.0-11.0) Red Blood Count 4.33 x10^6/uL (3.50-5.40) Hemoglobin 13.3 g/dL (12.0-15.5) Hematocrit 38.8 % (36.0-47.0) Mean Corpuscular Volume 90 fL (79-100) Mean Corpuscular Hemoglobin 31 pg (25-35) Mean Corpuscular Hemoglobin Concent 34 g/dL (31-37) Red Cell Distribution Width 13.4 % (11.5-14.5) Platelet Count 316 x10^3/uL (140-400) Neutrophils (%) (Auto) 78 % (31-73) H Lymphocytes (%) (Auto) 15 % (24-48) L Monocytes (%) (Auto) 6 % (0-9) Eosinophils (%) (Auto) 1 % (0-3) Basophils (%) (Auto) 1 % (0-3) Neutrophils # (Auto) 8.5 x10^3/uL (1.8-7.7) H Lymphocytes # (Auto) 1.6 x10^3/uL (1.0-4.8) Monocytes # (Auto) 0.7 x10^3/uL (0.0-1.1) Eosinophils # (Auto) 0.1 x10^3/uL (0.0-0.7) Basophils # (Auto) 0.1 x10^3/uL (0.0-0.2) Sodium Level 134 mmol/L (136-145) L Potassium Level 3.3 mmol/L (3.5-5.1) L Chloride Level 100 mmol/L (98-107) Carbon Dioxide Level 24 mmol/L (21-32) Anion Gap 10 (6-14) Blood Urea Nitrogen 8 mg/dL (7-20) Creatinine 1.0 mg/dL (0.6-1.0) Estimated GFR (Cockcroft-Gault) 59.7 BUN/Creatinine Ratio 8 (6-20) Glucose Level 93 mg/dL (70-99) Calcium Level 8.5 mg/dL (8.5-10.1) Total Bilirubin 1.2 mg/dL (0.2-1.0) H Aspartate Amino Transferase (AST) 22 U/L (15-37) Alanine Aminotransferase (ALT) 32 U/L (14-59) Alkaline Phosphatase 112 U/L (46-116) Total Protein 7.8 g/dL (6.4-8.2) Albumin 3.4 g/dL (3.4-5.0) Albumin/Globulin Ratio 0.8 (1.0-1.7) L Lipase 74 U/L (73-393) Laboratory Tests 03/31/20 14:15 Laboratory Tests 03/31/20 14:15 EKG EKG [] Radiology/Procedures Radiology/Procedures [] Course & Med Decision Making Course & Med Decision Making Pertinent Labs and Imaging studies reviewed. (See chart for details) 44f presenting the emergency department complaining of new onset of right-sided flank pain most consistent with acute renal stone. This is patient was con firmed with the patient and urinalysis was demonstrated blood in the urine. Patient was given IV fluids and pain control and a CT scan was obtained which demonstrated right-sided hydronephrosis but no evidence of a renal stone at this time. Dragon Disclaimer Dragon Disclaimer This electronic medical record was generated, in whole or in part, using a voice recognition dictation system. Departure Departure Impression: Primary Impression: Renal calculus, right Disposition: 01 DC HOME SELF CARE/HOMELESS Condition: GOOD Referrals: KIMBERLY CEDENO MD (PCP) Patient Instructions: Kidney Stones Additional Instructions: EMERGENCY DEPARTMENT GENERAL DISCHARGE INSTRUCTIONS Thank you for coming to [facility] (ED) today and trusting us with you care. We trust that you had a positive experience in our Emergency Department. If you wish to speak to the department management, you may call the Director at [phone]. YOUR FOLLOW UP INSTRUCTIONS ARE FOLLOWS: 1. Do you have a private Doctor? If you do not have a private doctor, please ask for a resource list of physicians or clinics that may be able to assist you with follow up care. 2. The Emergency Physicain has interpreted your x-rays. The X-Ray specialist will also review them. If there is a change in the findings, you will be notified in 48 hours when at all possible. 3. A lab test or culture has been done, your results will be reviewed and you will be notified if you need a change in treatment. ADDITIONAL INSTRUCTIONS AND INFORMATION: 1. Your care today has been supervised by a physician who is specially trained in emergency care. Many problems require more than one evaluation for a complete diagnosis and treatment. We recommend that you schedule your follow up appointment as recommended to ensure complete treatment of you illness or injury. If you are unable to obtain follow up care and continue to have a problem, or if your condition worsens, we recommend that you return to the ED. 2. We are not able to safely determine your condition over the phone nor are we able to give sound medical advice over the phone. For these safety reasons, if you call for medical advice we will ask you to come to the ED for further evaluation. 3. If you have any questions regarding these discharge instructions please call the ED at [phone]. SAFETY INFORMATION: In the interest of safety, wellness, and injury prevention; we encourage you to wear your sealbelt, if you smoke; quite smoking, and we encourage family to use a protective helmet for bicycling and other sporting events that present an increased risk for head injury. IF YOUR SYMPTOMS WORSEN OR NEW SYMPTOMS DEVELOP, OR YOU HAVE CONCERNS ABOUT YOUR CONDITION; OR IF YOUR CONDITION WORSENS WHILE YOU ARE WAITING FOR YOUR FOLLOW UP APPOINTMENT; EITHER CONTACT YOUR PRIMARY CARE DOCTOR, THE PHYSICIAN WHOSE NAME AND NUMBER YOU WERE GIVEN, OR RETURN TO THE ED IMMEDIATELY. BRANDAN TARANGO MD Mar 31, 2020 15:58
[2020-03-31 16:01] VITALS: BP 142/69
[2020-03-31] MEDS ORDERED: OXYC1TAB15 PO (16:14)
== END 2020-03-31 16:25 | disposition home or self-care (01) ==
LOC: ER 12:08
DX: N13.2 Hydronephrosis with renal and ureteral calculous obstruction (principal); R10.9 Unspecified abdominal pain; R20.2 Paresthesia of skin; R11.0 Nausea; I10 Essential (primary) hypertension; M79.7 Fibromyalgia; Z90.49 Acquired absence of other specified parts of digestive tract; Z90.710 Acquired absence of both cervix and uterus; Z98.890 Other specified postprocedural states
CPT/HCPCS: 36415; 74018; 74176; 80053; 81001; 83690; 85025; 96361; 96374; 96375; 99285; J1885; J2270; J2405; J7030

== ENCOUNTER 2020-11-25 13:34 | Emergency (ER) | payer OTHER ==
[~2020-11-25] VITALS: Ht 162.6 cm; Wt 95.0 kg
[~2020-11-25 13:34] MED LIST changes: +OXYC1TAB15 PO
[2020-11-25 14:23] VITALS: BP 159/110
[2020-11-25] MEDS ORDERED: KETOROLAC 60 MG/2 ML VIAL. IM ONE (14:45)
--- NOTE | 2020-11-25 15:15 | PHYS DOC ---
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 Patient reports she was assisting moving the patient when she felt a sudden burning sensation in her right trapezius area radiating into her shoulder. Patient reports this happened while at work on a medical unit at [facility] [employer]. Reports using proper lifting and patient transfer technique while moving patient with other hospital staff members assisting. Patient denies numbness or tingling of her right upper extremity. Denies other physical complaints or physical concerns. Review of Systems: Review of Systems: 14 body systems of review of systems have been reviewed. See HPI for pertinent positives and negative responses, otherwise all other systems are negative, nonpertinent or noncontributory. Constitutional: Negative except as outlined in HPI above. Skin: Negative except as outlined in HPI above. Eyes: Negative except as outlined in HPI above. HENT: Negative except as outlined in HPI above. Respiratory: Negative except as outlined in HPI above. Cardiovascular: Negative except as outlined in HPI above. GI: Negative except as outlined in HPI above. : Negative except as outlined in HPI above. Musculoskeletal: Negative except as outlined in HPI above. Integument: Negative except as outlined in HPI above. Neurologic: Negative except as outlined in HPI above. Endocrine: Negative except as outlined in HPI above. Lymphatic: Negative except as outlined in HPI above. Psychiatric: Negative except as outlined in HPI above. Heart Score: C/O Chest Pain: No Risk Factors: Risk Factors: DM, Current or recent (<one month) smoker, HTN, HLP, family history of CAD, obesity. Risk Scores: Score 0 - 3: 2.5% MACE over next 6 weeks - Discharge Home Score 4 - 6: 20.3% MACE over next 6 weeks - Admit for Clinical Observation Score 7 - 10: 72.7% MACE over next 6 weeks - Early Invasive Strategies Current Medications: Current Medications Medications (Trade) Dose Ordered Sig/Rakan Start Time Stop Time Status Last Admin Dose Admin Ketorolac Tromethamine (Toradol Im) 60 mg 1X ONCE 11/25/20 14:45 11/25/20 14:46 DC 11/25/20 14:58 60 MG Allergies: Allergies: Allergies Coded Allergies Type Severity Reaction Last Updated Verified No Known Drug Allergies 02/23/17 No Physical Exam: PE: Constitutional: Well developed, well nourished, no acute distress, non-toxic appearance. 45-year-old female holding right shoulder otherwise in no apparent distress. HENT: Normocephalic, atraumatic. Eyes: Conjunctiva normal, no discharge. Neck: Normal range of motion, no stridor. Cardiovascular: No cyanosis appreciated, distal cap refill less than 2 seconds. Lungs & Thorax: Patient is in no respiratory distress, no audible adventitious lung sounds appreciated. Abdomen: Nontender, no abnormalities noted. Skin: Warm, dry, no erythema, no rash. Back: No tenderness, no deformities. Pain to palpation along trapezius muscle area. Extremities: No tenderness, no cyanosis, no clubbing, ROM intact, no edema. Except for right upper extremity, limited passive range of motion of shoulder joint related to pain. Distal cap refill less than 2 seconds, 2+ radial pulses. Neurologic: Alert and oriented X 3, normal motor function, normal sensory function, no focal deficits noted. Psychologic: Affect normal, judgement normal, mood normal. Current Patient Data: Vital Signs: Vital Signs Date Time Temp Pulse Resp B/P (MAP) Pulse Ox O2 Delivery O2 Flow Rate FiO2 11/25/20 14:23 97.9 74 16 159/110 (126) 99 Room Air 97.9 EKG: EKG: [] Radiology/Procedures: Radiology/Procedures: [] Course & Med Decision Making: Course & Med Decision Making Pertinent Labs and Imaging studies reviewed. (See chart for details) 45-year-old female, vital signs reviewed, presents to the emergency department concerning right shoulder strain after assisting with transfer/moving a patient with elevated BMI. Patient's physical examination consistent with trapezius muscle strain and right shoulder strain. Discussed with patient using ice packs 30 minutes on 30 minutes off while awake, will order IM Toradol injection in the emergency department today, prescription for muscle relaxer and pain medication for home, will give a work excuse. Strict follow-up with employee health, primary MD for ongoing pain management. Patient is amenable to ED discharge planning. Discussed with the patient all findings and diagnostic testing as well as the need to follow-up with their primary care provider for further evaluation and treatment or return to the ED if any new or worsening symptoms. Strict return precautions were also discussed at length, the patient voiced understanding and agreement with the discharge planning. The patient was nontoxic in appearance, in no apparent distress, and hemodynamically stable at the time of disposition. Dragon Disclaimer: Dragon Disclaimer: This electronic medical record was generated, in whole or in part, using a voice recognition dictation system. Departure Departure Impression: Primary Impression: Strain of right trapezius muscle Qualified Codes: S46.811A - Strain of other muscles, fascia and tendons at shoulder and upper arm level, right arm, initial encounter Additional Impression: Right shoulder strain Qualified Codes: S46.911A - Strain of unspecified muscle, fascia and tendon at shoulder and upper arm level, right arm, initial encounter Disposition: HOME / SELF CARE / HOMELESS Condition: GOOD Referrals: KIMBERLY CEDENO MD (PCP) Patient Instructions: Shoulder Sprain Additional Instructions: You were seen in the emergency department for pain of your right upper back and shoulder after lifting a heavy patient while at work. This is most likely a muscle strain related to this patient transfer your performed today while at work. You were given an intramuscular injection of Toradol in the emergency department. I am prescribing you a muscle relaxer and pain medication to take at home, please take as directed. Use ice to the sore area 30 minutes on 30 minutes off while awake for the next 48 to 72 hours. Please perform shoulder exercises as we discussed 4-5 times per day. Follow-up with employee health as directed. Follow-up with your primary care physician for ongoing pain management. Thank you for visiting our Emergency Department. It was a pleasure taking care of you today in the emergency department and we appreciate you trusting us with your care. If any additional problems come up don't hesitate to return to visit us. Please follow up with your primary care provider so they can plan additional care if needed and know about the problem that you had. If symptoms worsen come back to the Emergency Department. Any concerning symptoms that start such as chest pain, shortness of air, weakness or numbness on one side of the body, running high fevers or any other concerning symptoms return to the ER. Scripts Ibuprofen (IBUPROFEN) 600 Mg Tablet 600 MG PO PRN Q6HRS PRN for INFLAMMATION, #60 TAB 0 Refills Prov: JEAN ALBA DATACAP DEVELOPER 11/25/20 Cyclobenzaprine Hcl (CYCLOBENZAPRINE HCL) 10 Mg Tablet 10 MG PO TID for muscle pains, #15 TAB 0 Refills Prov: JEAN ALBA [employer]AC[employer] DEVELOPER 11/25/20 Hydrocodone Bit/Acetaminophen (HYDROCODONE-APAP 5-325 ) 1 Tab Tablet 1 TAB PO PRN Q6HRS PRN for PAIN, #15 TAB 0 Refills Prov: JEAN ALBA DATACAP DEVELOPER 11/25/20 JEAN ALBA DAT[employer] DEVELOPER Nov 25, 2020 15:15
[2020-11-25] MEDS ORDERED: CYCL10TA2 PO (15:25)
[2020-11-25] MEDS ORDERED: IBUP-1007 PO (15:25)
[2020-11-25] MEDS ORDERED: HYDR-2761 PO (15:25)
== END 2020-11-25 15:35 | disposition home or self-care (01) ==
LOC: ER 13:34
DX: S46.811A Strain of other muscles, fascia and tendons at shoulder and upper arm level, right arm, initial encounter (principal); I10 Essential (primary) hypertension; X50.9XXA Other and unspecified overexertion or strenuous movements or postures, initial encounter; Y93.89 Activity, other specified; Y92.89 Other specified places as the place of occurrence of the external cause; Y99.8 Other external cause status
CPT/HCPCS: 96372; 99283; J1885

== ENCOUNTER → 2021-02-26 | Outpatient (CLI) | payer OTHER ==
[~2021-02-26] MED LIST changes: +CYCL10TA19 PO; -CYCL10TA2 PO; +HYDR-2761 PO; +IBUP-1007 PO
== END ==
LOC: LAB 11:56
PROVIDERS: ATTEND Internal Medicine Pulmonary Disease
DX: R05.9 Cough, unspecified (principal); R51.9 Headache, unspecified; R09.89 Other specified symptoms and signs involving the circulatory and respiratory systems; Z20.822 Contact with and (suspected) exposure to COVID-19
CPT/HCPCS: U0003; U0005

== ENCOUNTER → 2021-05-10 | Outpatient (CLI) | payer OTHER ==
[2021-05-10 16:35] LABS: BACTERIA,URINE FEW /HPF (0-FEW)
== END ==
LOC: LAB 15:48
PROVIDERS: ATTEND Family Medicine
DX: M54.50 Low back pain, unspecified (principal)
CPT/HCPCS: 81001